=== PATIENT | male | born 1995 | race Asian ===

== ENCOUNTER 2018-02-27 12:01 | Emergency (ER) | payer OTHER ==
[~2018-02-27] VITALS: Ht 175.3 cm; Wt 82.1 kg
[2018-02-27 12:18] LABS: URINE BILIRUBIN NEGATIVE (Negative); URINE BLOOD NEGATIVE (Negative); URINE CLARITY CLEAR; URINE COLOR YELLOW; URINE GLUCOSE-RANDOM* NEGATIVE (Negative); URINE KETONES NEGATIVE (Negative); URINE LEUKOCYTES-REFLEX NEGATIVE (Negative); URINE NITRITE-REFLEX NEGATIVE (Negative); URINE PROTEIN (DIPSTICK) NEGATIVE (Negative); URINE UROBILINOGEN 0.2 E.U./dl (0.2-1.0)
[2018-02-27] MEDS ORDERED: TRUVADA 200 MG1 EACH PO (12:24)
[2018-02-27] MEDS ORDERED: ANDROGEL2.5 GM TOP (12:25)
[2018-02-27] MEDS ORDERED: ADCIRCA20 MG PO (12:25)
[2018-02-27 12:30] LABS: ABSOLUTE NEUTROPHILS 5.5 thou/uL (1.4-8.2); BASOPHILS 0.6 % (0.0-2.0); EOSINOPHILS 1.5 % (0.0-3.0); HEMATOCRIT 46.1 % (42.0-52.0); HEMOGLOBIN 15.9 gm/dL (14.0-18.0); LYMPHOCYTES 34.2 % (24.0-44.0); MCHC 34.5 g/dL (28.0-37.0); MCV 89.6 fL (80.0-100.0); MONOCYTES 10.2 % (1.0-8.0); PLATELET COUNT 491 thou/uL (150-400); POLYS 53.5 % (36.0-66.0); RBC 5.14 mil/uL (4.50-6.00); RDW 13.2 % (10.5-14.5); WBC 10.4 thou/uL (4.0-11.0)
[2018-02-27 12:44] LABS: CALCIUM 9.4 mg/dL (8.5-10.1); POTASSIUM 3.8 mmol/L (3.5-5.1)
[2018-02-27 12:50] LABS: ALBUMIN 4.1 g/dL (3.4-5.0); TOTAL BILIRUBIN 0.4 mg/dL (<0.1-1.0); TOTAL PROTEIN 8.9 g/dL (6.4-8.2)
[2018-02-27] MEDS ORDERED: AMOXICILLIN 50500 MG PO (13:48)
[2018-02-27] MEDS ORDERED: MEDROLDOSEPACK PO (13:48)
[2018-02-27 14:06] VITALS: BP 104/64
== END 2018-02-27 14:17 | disposition home or self-care (01) ==
LOC: ER 12:01
PROVIDERS: Nurse Practitioner Family
DX: J03.90 Acute tonsillitis, unspecified (principal); R11.0 Nausea